=== PATIENT | female | born 1995 | race Caucasian/White ===

== ENCOUNTER 2017-01-18 19:03 | Emergency (ER) | payer OTHER ==
--- NOTE | 2017-01-18 21:36 | ED CLINICAL REPORT ---
Clinical Report - Physicians/Mid Levels [facility] [address] [place] [address] 01/18/2017 19:07 Patient: FARHAN GODINEZ Time Seen: 19:26. Arrived- By private vehicle. Historian- patient. HISTORY OF PRESENT ILLNESS Chief Complaint: Injury to the left thumb. The injury happened just prior to arrival. The patient sustained a laceration from a sharp edge and knife. Occurred at home. Patient is experiencing moderate pain. No other injury. REVIEW OF SYSTEMS The patient sustained a single laceration to the left thumb. No tingling or foreign body. All systems otherwise negative, except as recorded above. PAST HISTORY The patient's dominant hand is the right. Tetanus immunization status is up-to-date. SOCIAL HISTORY Never smoker. Occasional alcohol use. No drug use. FAMILY HISTORY No significant family medical history. ADDITIONAL NOTES The nursing notes have been reviewed. PHYSICAL EXAM Vital Signs: 01/18/2017 19:13 BP: 134/86. HR: 110. RR: 20. O2 saturation: 99%. Temp: 98.2 F. Pain level now: 5/10. Have been reviewed. Appearance: Alert. Head: Head atraumatic. Eyes: Pupils equal, round and reactive to light. ENT: Pharynx normal. Neck: Neck supple. Abdomen: No visible injury. Back: Normal inspection. Skin: Skin warm and dry. Extremities: Tip of left thumb: superficial 0.5 cm laceration, which involves the nail bed. SEE LACERATION PROCEDURE NOTE #1. Extremities otherwise negative. Neuro, Vascular and Tendons: Vascular status intact. Sensation intact. Motor intact. Tendon function intact. Neuro: No motor deficit. No sensory deficit. PROGRESS AND PROCEDURES Laceration Repair: Location: left thumb. Time-out completed immediately before the procedure. Length: 0.5cm. Complexity: simple (closed with tissue adhesive). Wound depth/shape- curved. Distal neuro/vascular/tendon status normal. Anesthesia provided using LET. Prepped with Hibiclens. Wound explored and cleansed. Closure of skin and nail bed. Skin adhesive used. Post-procedure: she is stable and there are no complications. Bleeding is controlled. Tetanus immunization up-to-date. Course of Care: Patient is stable. Patient/family counseled. Old medical records ordered. Old records unavailable. Disposition: Discharged. Condition: stable. CLINICAL IMPRESSION Superficial laceration to the left thumb. INSTRUCTIONS Limit use of your left hand for two weeks until better. Warnings: COMPLICATIONS: Complications from this condition include: possible infection. Future problems may include infection, loss of function, pain and deformity. INFECTION: Watch for signs of infection (increasing heat and redness, pus-like drainage, swelling, or increased pain). Return or see your doctor if these signs occur. OTC Medications: Acetaminophen (available over the counter): take according to label instructions. Motrin (available over the counter): take according to label instructions. Understanding of the discharge instructions verbalized by patient. (Electronically signed by Kamran Suárze MD 01/19/2017 13:49)
--- NOTE | 2017-01-18 21:36 | ED CLINICAL REPORT ---
Clinical Report - Physicians/Mid Levels [facility] [address] [place] [address] 01/18/2017 19:07 Patient: FARHAN GODINEZ Time Seen: 19:26. Arrived- By private vehicle. Historian- patient. HISTORY OF PRESENT ILLNESS Chief Complaint: Injury to the left thumb. The injury happened just prior to arrival. The patient sustained a laceration from a sharp edge and knife. Occurred at home. Patient is experiencing moderate pain. No other injury. REVIEW OF SYSTEMS The patient sustained a single laceration to the left thumb. No tingling or foreign body. All systems otherwise negative, except as recorded above. PAST HISTORY The patient's dominant hand is the right. Tetanus immunization status is up-to-date. SOCIAL HISTORY Never smoker. Occasional alcohol use. No drug use. FAMILY HISTORY No significant family medical history. ADDITIONAL NOTES The nursing notes have been reviewed. PHYSICAL EXAM Vital Signs: 01/18/2017 19:13 BP: 134/86. HR: 110. RR: 20. O2 saturation: 99%. Temp: 98.2 F. Pain level now: 5/10. Have been reviewed. Appearance: Alert. Head: Head atraumatic. Eyes: Pupils equal, round and reactive to light. ENT: Pharynx normal. Neck: Neck supple. Abdomen: No visible injury. Back: Normal inspection. Skin: Skin warm and dry. Extremities: Tip of left thumb: superficial 0.5 cm laceration, which involves the nail bed. SEE LACERATION PROCEDURE NOTE #1. Extremities otherwise negative. Neuro, Vascular and Tendons: Vascular status intact. Sensation intact. Motor intact. Tendon function intact. Neuro: No motor deficit. No sensory deficit. PROGRESS AND PROCEDURES Laceration Repair: Location: left thumb. Time-out completed immediately before the procedure. Length: 0.5cm. Complexity: simple (closed with tissue adhesive). Wound depth/shape- curved. Distal neuro/vascular/tendon status normal. Anesthesia provided using LET. Prepped with Hibiclens. Wound explored and cleansed. Closure of skin and nail bed. Skin adhesive used. Post-procedure: she is stable and there are no complications. Bleeding is controlled. Tetanus immunization up-to-date. Course of Care: Patient is stable. Patient/family counseled. Old medical records ordered. Old records unavailable. Disposition: Discharged. Condition: stable. CLINICAL IMPRESSION Superficial laceration to the left thumb. INSTRUCTIONS Limit use of your left hand for two weeks until better. Warnings: COMPLICATIONS: Complications from this condition include: possible infection. Future problems may include infection, loss of function, pain and deformity. INFECTION: Watch for signs of infection (increasing heat and redness, pus-like drainage, swelling, or increased pain). Return or see your doctor if these signs occur. OTC Medications: Acetaminophen (available over the counter): take according to label instructions. Motrin (available over the counter): take according to label instructions. Understanding of the discharge instructions verbalized by patient. (Electronically signed by Kamran Suárez MD 01/19/2017 13:49)
--- NOTE | 2017-01-18 21:36 | ED NURSING NOTES ---
Clinical Report - Nurses [facility] [address] [place] [address] 01/18/2017 19:07 Patient: FARHAN GODINEZ TRIAGE Triage time 19:13. Acuity: LEVEL 3. Chief Complaint: INJURY TO LEFT HAND. INJURY TO THE LEFT THUMB. Alert. No acute distress. --19:21 Lyla Campos R.N. 19:13 01/18/17. BP: 134/86. HR: 110. RR: 20. O2 saturation: 99%. Temp: 98.2 F. Pain level now: 11/14. --19:21 Lyla Campos R.N. Weight: 88.4 kg stated. Height/Length: 67 inches Per Patient. BMI: 30.6. --19:16 Lyla Campos R.N. Medications Lexapro Oral 20 mg, daily. --19:18 Lyla Campos R.N. Vicodin Oral 5 mg, PRN. --19:18 Lyla Campos R.N. MetFORMIN HCl Oral 500 mg, daily. --19:18 Lyla Campos R.N. Clariton 10mg , PRN. --19:18 Lyla Campos R.N. Medication/allergy information source: the patient. --19:21 Lyla Campos R.N. Allergies Environmental. --19:20 Lyla Campos R.N. History Arrived by private vehicle. Historian: patient and family. Accompanied by family. Primary physician (lamonte). This occurred just prior to arrival. She sustained a laceration. Treatment AIRLINE PILOT: (pressure). PAST MEDICAL HX: Tetanus status: up-to-date. Last normal menstrual period was 1 week ago. SOCIAL HX: Never smoker. Occasional alcohol use. No drug use. FALL RISK ASSESSMENT: Fall risk assessment completed. No fall risk identified. NUTRITIONAL RISK ASSESSMENT: The nutritional risk assessment revealed no deficiencies. FUNCTIONAL ASSESSMENT: Functional assessment: no impairments noted. LEARNING NEEDS ASSESSMENT: The learning needs assessment revealed no barriers. SKIN INTEGRITY ASSESSMENT: Skin integrity risk assessment completed. No skin integrity risk identified. --19:21 Lyla Campos R.N. PROBLEMS: Hyperlipidemia. Depression. Anxiety . --19:17 Lyla Campos R.N. ADDITIONAL SURGERIES: Breast reduction . Hume teeth . --19:17 Lyla Campos R.N. Interventions ID band on patient. To room. --19:21 Lyla Campos R.N. PHYSICAL ASSESSMENT Ambulatory to room. GENERAL / NEURO / PSYCH: Oriented X 4. Alert. Appears anxious. EXTREMITIES: Capillary refill is less than 2 seconds in the extremities. Extremity pulses are within normal limits. Extremities exhibit normal ROM. Neuro-vascular status intact to the extremity. Left hand: tenderness (thumb). SKIN: Skin intact. Skin is warm and dry. --19:22 Lyla Campos R.N. NURSING PROGRESS NOTES Extremity elevated. Two patient identifiers checked. Call light placed in reach. Side rails up x 2. Bed placed in lowest position. Brakes of bed on. Patient ready for evaluation. --19:22 Lyla Campos R.N. 20:00. Wound cleansed with Betadine. --20:30 Lyla Campos R.N. DISPOSITION / DISCHARGE 21:45. Condition at departure: improved. No learning barriers present. Discharge instructions provided and reviewed with the patient and spouse. Reviewed medication(s) side effects, precautions, dosing and course information. Prescription(s) given to the patient. Patient verbalized understanding. Written instructions provided in Samoan. The patient was discharged home and accompanied by spouse. She left the Emergency Department ambulatory and via private vehicle. Spouse driving. Medication list reviewed and validated. --22:13 Lyla Campos R.N. 21:45 01/18/17. BP: 130/80. HR: 72. RR: 16. O2 saturation: 99% on room air. Temp: deferred. Pain level now: 08/17. 19:13 01/18/17. BP: 134/86. HR: 110. RR: 20. O2 saturation: 99%. Temp: 98.2 F. Pain level now: 11/14. --22:13 Lyla Campos R.N. Locked/Released at 01/18/2017 22:15 by Lyla Campos R.N.
--- NOTE | 2017-01-18 21:36 | ED NURSING NOTES ---
Clinical Report - Nurses [facility] [address] [place] [address] 01/18/2017 19:07 Patient: FARHAN GODINEZ TRIAGE Triage time 19:13. Acuity: LEVEL 3. Chief Complaint: INJURY TO LEFT HAND. INJURY TO THE LEFT THUMB. Alert. No acute distress. --19:21 Lyla Campos R.N. 19:13 01/18/17. BP: 134/86. HR: 110. RR: 20. O2 saturation: 99%. Temp: 98.2 F. Pain level now: 11/14. --19:21 Lyla Campos R.N. Weight: 88.4 kg stated. Height/Length: 67 inches Per Patient. BMI: 30.6. --19:16 Lyla Campos R.N. Medications Lexapro Oral 20 mg, daily. --19:18 Lyla Campos R.N. Vicodin Oral 5 mg, PRN. --19:18 Lyla Campos R.N. MetFORMIN HCl Oral 500 mg, daily. --19:18 Lyla Campos R.N. Clariton 10mg , PRN. --19:18 Lyla Campos R.N. Medication/allergy information source: the patient. --19:21 Lyla Campos R.N. Allergies Environmental. --19:20 Lyla Campos R.N. History Arrived by private vehicle. Historian: patient and family. Accompanied by family. Primary physician (lamonte). This occurred just prior to arrival. She sustained a laceration. Treatment CORPORATE STRATEGY INTERN: (pressure). PAST MEDICAL HX: Tetanus status: up-to-date. Last normal menstrual period was 1 week ago. SOCIAL HX: Never smoker. Occasional alcohol use. No drug use. FALL RISK ASSESSMENT: Fall risk assessment completed. No fall risk identified. NUTRITIONAL RISK ASSESSMENT: The nutritional risk assessment revealed no deficiencies. FUNCTIONAL ASSESSMENT: Functional assessment: no impairments noted. LEARNING NEEDS ASSESSMENT: The learning needs assessment revealed no barriers. SKIN INTEGRITY ASSESSMENT: Skin integrity risk assessment completed. No skin integrity risk identified. --19:21 Lyla Campos R.N. PROBLEMS: Hyperlipidemia. Depression. Anxiety . --19:17 Lyla Campos R.N. ADDITIONAL SURGERIES: Breast reduction . Flippin teeth . --19:17 Lyla Campos R.N. Interventions ID band on patient. To room. --19:21 Lyla Campos R.N. PHYSICAL ASSESSMENT Ambulatory to room. GENERAL / NEURO / PSYCH: Oriented X 4. Alert. Appears anxious. EXTREMITIES: Capillary refill is less than 2 seconds in the extremities. Extremity pulses are within normal limits. Extremities exhibit normal ROM. Neuro-vascular status intact to the extremity. Left hand: tenderness (thumb). SKIN: Skin intact. Skin is warm and dry. --19:22 Lyla Campos R.N. NURSING PROGRESS NOTES Extremity elevated. Two patient identifiers checked. Call light placed in reach. Side rails up x 2. Bed placed in lowest position. Brakes of bed on. Patient ready for evaluation. --19:22 Lyla Campos R.N. 20:00. Wound cleansed with Betadine. --20:30 Lyla Campos R.N. DISPOSITION / DISCHARGE 21:45. Condition at departure: improved. No learning barriers present. Discharge instructions provided and reviewed with the patient and spouse. Reviewed medication(s) side effects, precautions, dosing and course information. Prescription(s) given to the patient. Patient verbalized understanding. Written instructions provided in [place]an. The patient was discharged home and accompanied by spouse. She left the Emergency Department ambulatory and via private vehicle. Spouse driving. Medication list reviewed and validated. --22:13 Lyla Campos R.N. 21:45 01/18/17. BP: 130/80. HR: 72. RR: 16. O2 saturation: 99% on room air. Temp: deferred. Pain level now: 08/17. 19:13 01/18/17. BP: 134/86. HR: 110. RR: 20. O2 saturation: 99%. Temp: 98.2 F. Pain level now: 11/14. --22:13 Lyla Campos R.N. Locked/Released at 01/18/2017 22:15 by Lyla Campos R.N.
--- NOTE | 2017-01-19 13:49 | ED MED RECONCILIATION SUMMARY ---
Patient: FARHAN GODINEZ Medication Reconciliation Report [facility] VisitID: [id number] [address] [place] [address] 21y, F Registration Date/Time: 01/18/2017 Weight: 88.4 kg Height/Length: 67 in. BMI: 30.6 ALLERGIES: Environmental The patient's Home Medications are listed below: THE FOLLOWING MEDICATIONS NEED TO BE RECONCILED: Clariton 10mg , PRN Lexapro Oral 20 mg, daily MetFORMIN HCl Oral 500 mg, daily Vicodin Oral 5 mg, PRN The source(s) of the original Home Medication information: patient The following Medications were given to the patient in the Emergency Department: None. The following Medications were prescribed to the patient: Acetaminophen (available over the counter): take according to label instructions. -- Kamran Suárez MD Motrin (available over the counter): take according to label instructions. -- Kamran Suárez MD
--- NOTE | 2017-01-19 13:49 | ED MAR SUMMARY ---
..... Medication Administration Record [facility] [address] [place], [place] [id number] Patient: FARHAN GODINEZ Visit ID: [id number] 21y, F Weight: 88.4 kg Height/Length: 67 in BMI: 30.6 ALLERGIES: Environmental
--- NOTE | 2017-01-19 13:49 | ED MAR SUMMARY ---
..... Medication Administration Record [facility] [address] [id number] Patient: FARHAN GODINEZ Visit ID: [id number] 21y, F Weight: 88.4 kg Height/Length: 67 in BMI: 30.6 ALLERGIES: Environmental
--- NOTE | 2017-01-19 13:49 | ED DISCHARGE INSTRUCTIONS ---
Patient: FARHAN GODINEZ General Instructions [facility] VisitID: [id number] [place] [address] 21y, F Registration Date/Time: 01/18/2017 Superficial laceration to the left thumb. INSTRUCTIONS Limit use of your left hand for two weeks until better. Warnings: COMPLICATIONS: Complications from this condition include: possible infection. Future problems may include infection, loss of function, pain and deformity. INFECTION: Watch for signs of infection (increasing heat and redness, pus-like drainage, swelling, or increased pain). Return or see your doctor if these signs occur. OTC Medications: Acetaminophen (available over the counter): take according to label instructions. Motrin (available over the counter): take according to label instructions. Understanding of the discharge instructions verbalized by patient. ADDITIONAL INFORMATION Laceration, Extremity (Sutures, [place], Or Tape) A laceration is a cut through the skin. This will usually require stitches (sutures) or westley if it is deep. Minor cuts may be treated with surgical tape closures. Home care The following guidelines will help you care for your laceration at home: Keep the wound clean and dry. If a bandage was applied and it becomes wet or dirty, replace it. Otherwise, leave it in place for the first 24 hours, then change it once a day or as directed. If stitches or westley were used, clean the wound daily: After removing the bandage, wash the area with soap and water. Use a wet cotton swab to loosen and remove any blood or crust that forms. After cleaning, keep the wound clean and dry. Talk with your doctor before applying any antibiotic ointment to the wound. Reapply the bandage. You may remove the bandage to shower as usual after the first 24 hours, but do not soak the area in water (no swimming) until the stitches or westley are removed. If surgical tape closures were used, keep the area clean and dry. If it becomes wet, blot it dry with a towel. The doctor may prescribe an antibiotic cream or ointment to prevent infection. Do not stop taking this medication until you have finished the prescribed course or the doctor tells you to stop. The doctor may also prescribe medications for pain. Follow the doctors instructions for taking these medications. If you have chronic liver or kidney disease or ever had a stomach ulcer or GI bleeding, talk with your doctor before using these medicines. Follow-up care Follow up with your health care provider. Most skin wounds heal within ten days. However, an infection may sometimes occur despite proper treatment. Therefore, check the wound daily for the signs of infection listed below. Stitches and westley should be removed within 714 days. If surgical tape closures were used, you may remove them after 10 days, if they have not fallen off by then. Notify your doctor if you notice persistent numbness or weakness in the injured extremity. (Note:A radiologist will review any X-rays that were taken. We will notify you of any new findings that may affect your care.) When to seek medical care Get prompt medical attention if any of these occur: Increasing pain in the wound Redness, swelling, or pus coming from the wound Fever of 100.4F (38C) or higher, or as directed by your health care provider If stitches or westley come apart or fall out before your next appointment If the surgical tape closures fall off within seven days, or the wound edges re-open Bleeding not controlled by direct pressure Laceration(Skin Glue) A laceration is a cut through the skin. You have a laceration that has been closed with a type of skin glue. Home Care Medications: Acetaminophen (Tylenol) or ibuprofen (Motrin, Advil) may be taken for pain, unless another pain medicine was prescribed. NOTE: If you have chronic liver or kidney disease or ever had a stomach ulcer or GI bleeding, talk with your doctor before using these medications. General Care: Keep the wound clean and dry. You may shower or bathe as usual, but do not use soaps, lotions, or ointments on the wound area. Do not scrub the wound. After bathing, pat the wound dry with a soft towel. If a bandage was applied and it becomes wet or dirty, replace it. Otherwise, change the bandage every 24 hours. Do not scratch, rub, or pick at the film. Do not place tape directly over the film. Do not apply liquids (such as peroxide), ointments, or creams to the wound while the film is in place. Most skin wounds heal without problems. However, an infection sometimes occurs despite proper treatment. Therefore, watch for the signs of infection listed below. Follow Up as directed by the doctor or our staff. The skin glue film will fall off naturally in 5 to 10 days. Get Prompt Medical Attention if any of the following occur: Signs of infection: Fever of 100.4F (38C) or higher, or as directed by your healthcare provider Increasing pain in the wound Increasing redness or swelling Pus coming from the wound Wound bleeds more than a small amount or bleeding doesnt stop Wound edges come apart You feel numbness or weakness in the wound area that doesnt go away Acetaminophen Oral tablet What is this medicine? ACETAMINOPHEN (a set a TATIANA kristie fen) is a pain reliever. It is used to treat mild pain and fever. How should I use this medicine? Take this medicine by mouth with a glass of water. Follow the directions on the package or prescription label. Take your medicine at regular intervals. Do not take your medicine more often than directed. Talk to your solar sales estimator regarding the use of this medicine in children. While this drug may be prescribed for children as young as 6 years of age for selected conditions, precautions do apply. What side effects may I notice from receiving this medicine? Side effects that you should report to your doctor or health pet care technician as soon as possible: allergic reactions like skin rash, itching or hives, swelling of the face, lips, or tongue breathing problems fever or sore throat redness, blistering, peeling or loosening of the skin, including inside the mouth trouble passing urine or change in the amount of urine unusual bleeding or bruising unusually weak or tired yellowing of the eyes or skin Side effects that usually do not require medical attention (report to your doctor or health pet care technician if they continue or are bothersome): headache nausea, stomach upset What may interact with this medicine? alcohol imatinib isoniazid other medicines with acetaminophen What if I miss a dose? If you miss a dose, take it as soon as you can. If it is almost time for your next dose, take only that dose. Do not take double or extra doses. Where should I keep my medicine? Keep out of reach of children. Store at room temperature between 20 and 25 degrees C (68 and 77 degrees F). Protect from moisture and heat. Throw away any unused medicine after the expiration date. What should I tell my health care provider before I take this medicine? They need to know if you have any of these conditions: if you frequently drink alcohol containing drinks liver disease an unusual or allergic reaction to acetaminophen, other medicines, foods, dyes or preservatives or trying to get breast-feeding What should I watch for while using this medicine? Tell your doctor or health pet care technician if the pain lasts more than 10 days (5 days for children), if it gets worse, or if there is a new or different kind of pain. Also, check with your doctor if a fever lasts for more than 3 days. Do not take other medicines that contain acetaminophen with this medicine. Always read labels carefully. If you have questions, ask your doctor or pharmacist. If you take too much acetaminophen get medical help right away. Too much acetaminophen can be very dangerous and cause liver damage. Even if you do not have symptoms, it is important to get help right away. Ibuprofen Oral tablet What is this medicine? IBUPROFEN (eye BYOO proe fen) is a non-steroidal anti-inflammatory drug (NSAID). It is used for dental pain, fever, headaches or migraines, osteoarthritis, rheumatoid arthritis, or painful monthly periods. It can also relieve minor aches and pains caused by a cold, flu, or sore throat. How should I use this medicine? Take this medicine by mouth with a glass of water. Follow the directions on the prescription label. Take this medicine with food if your stomach gets upset. Try to not lie down for at least 10 minutes after you take the medicine. Take your medicine at regular intervals. Do not take your medicine more often than directed. A special MedGuide will be given to you by the pharmacist with each prescription and refill. Be sure to read this information carefully each time. Talk to your solar sales estimator regarding the use of this medicine in children. Special care may be needed. What side effects may I notice from receiving this medicine? Side effects that you should report to your doctor or health pet care technician as soon as possible: allergic reactions like skin rash, itching or hives, swelling of the face, lips, or tongue black or bloody stools, blood in the urine or in vomit breathing problems changes in vision chest pain general ill feeling or flu-like symptoms nausea or vomiting redness, blistering, peeling or loosening of the skin, including inside the mouth slurred speech or weakness on one side of the body stomach pain unexplained weight gain or swelling unusually weak or tired yellowing of eyes or skin Side effects that usually do not require medical attention (report to your doctor or health pet care technician if they continue or are bothersome): constipation or diarrhea dizziness gas or heartburn stomach upset What may interact with this medicine? Do not take this medicine with any of the following medications: cidofovir ketorolac methotrexate pemetrexed This medicine may also interact with the following medications: alcohol aspirin diuretics lithium other drugs for inflammation like prednisone warfarin What if I miss a dose? If you miss a dose, take it as soon as you can. If it is almost time for your next dose, take only that dose. Do not take double or extra doses. Where should I keep my medicine? Keep out of the reach of children. Store at room temperature between 15 and 30 degrees C (59 and 86 degrees F). Keep container tightly closed. Throw away any unused medicine after the expiration date. What should I tell my health care provider before I take this medicine? They need to know if you have any of these conditions: asthma cigarette smoker drink more than 3 alcohol containing drinks a day heart disease or circulation problems such as heart failure or leg edema (fluid retention) high blood pressure kidney disease liver disease stomach bleeding or ulcers an unusual or allergic reaction to ibuprofen, aspirin, other NSAIDS, other medicines, foods, dyes, or preservatives or trying to get breast-feeding What should I watch for while using this medicine? Tell your doctor or healthcare professional if your symptoms do not start to get better or if they get worse. This medicine does not prevent heart attack or stroke. In fact, this medicine may increase the chance of a heart attack or stroke. The chance may increase with longer use of this medicine and in people who have heart disease. If you take aspirin to prevent heart attack or stroke, talk with your doctor or health pet care technician. Do not take other medicines that contain aspirin, ibuprofen, or naproxen with this medicine. Side effects such as stomach upset, nausea, or ulcers may be more likely to occur. Many medicines available without a prescription should not be taken with this medicine. This medicine can cause ulcers and bleeding in the stomach and intestines at any time during treatment. Ulcers and bleeding can happen without warning symptoms and can cause . To reduce your risk, do not smoke cigarettes or drink alcohol while you are taking this medicine. You may get drowsy or dizzy. Do not drive, use machinery, or do anything that needs mental alertness until you know how this medicine affects you. Do not stand or sit up quickly, especially if you are an older patient. This reduces the risk of dizzy or fainting spells. This medicine can cause you to bleed more easily. Try to avoid damage to your teeth and gums when you brush or floss your teeth. You have been given the following additional information: Laceration, Extrem (Suture, Staple, Or Tape) Laceration, Extremity (Skin Glue) Acetaminophen Oral tablet Ibuprofen Oral tablet Limit use of your left hand for two weeks until better. (Electronically signed by Kamran Suárez MD 01/19/2017 13:49)
--- NOTE | 2017-01-19 13:49 | ED MED RECONCILIATION SUMMARY ---
Patient: FARHAN GODINEZ Medication Reconciliation Report [facility] VisitID: [id number] [address] [place] [address] 21y, F Registration Date/Time: 01/18/2017 Weight: 88.4 kg Height/Length: 67 in. BMI: 30.6 ALLERGIES: Environmental The patient's Home Medications are listed below: THE FOLLOWING MEDICATIONS NEED TO BE RECONCILED: Clariton 10mg , PRN Lexapro Oral 20 mg, daily MetFORMIN HCl Oral 500 mg, daily Vicodin Oral 5 mg, PRN The source(s) of the original Home Medication information: patient The following Medications were given to the patient in the Emergency Department: None. The following Medications were prescribed to the patient: Acetaminophen (available over the counter): take according to label instructions. -- Kamran Suárez MD Motrin (available over the counter): take according to label instructions. -- Kamran Suárez MD
== END 2017-01-18 21:45 | disposition home or self-care (01) ==
LOC: ED SRH 19:03
DX: S61.012A Laceration without foreign body of left thumb without damage to nail, initial encounter (principal); W26.0XXA Contact with knife, initial encounter; Y93.9 Activity, unspecified; Y92.019 Unspecified place in single-family (private) house as the place of occurrence of the external cause; Y99.9 Unspecified external cause status; E78.5 Hyperlipidemia, unspecified; Z79.84 Long term (current) use of oral hypoglycemic drugs; Z79.899 Other long term (current) drug therapy; Z91.09 Other allergy status, other than to drugs and biological substances
CPT/HCPCS: 83495